=== PATIENT | male | born 1970 | race Caucasian/White ===

== ENCOUNTER → 2020-06-08 | Outpatient (CLI) | payer OTHER ==
[~2020-06-08] MED LIST: ASPIRIN EC81 M1 PO; ASPIRIN325 PO; ATIVAN0.5 MG PO; AZITHROMYCIN250 MG PO; BENTYL 10 MG CA10 M1 PO; CARDIZEM CD240 MG PO; CIALIS10 MG PO; DEXILANT60 MG PO; DILTIAZEM 24HR240 M1 PO; DILTIAZEM 24HR240 MG PO; FAMCYCLOVIR 50500 M1 PO; FAMVIR500 MG PO; FLECAINIDE ACE100 MG PO; HYDROCODON-ACE1 EAC7 PO; HYDROCODONE-AP1 EAC6 PO; IBUPROFEN200 M2 PO; LOPRESSOR50 PO; MEDROL DOSPAK21 TAB PO; NORCO 5-325 TA1 EACH PO; PRILOSEC40 MG PO; PROTONIX40 M2 PO; SENNA8.6 MG PO; TRAMADOL 50 MG50 MG PO
== END ==
LOC: LAB 09:37
PROVIDERS: ATTEND Family Medicine
DX: R05 Cough (principal); Z20.822 Contact with and (suspected) exposure to COVID-19